=== PATIENT | female | born 1980 | race African-American/Black ===

== ENCOUNTER 2018-05-07 02:43 | Emergency (ER) | payer MEDICAID ==
--- NOTE | 2018-05-07 02:50 | EDPHY ---
H & P Stated Complaint: from out of town didn't bring her abilify Time Seen by Provider: 05/07/18 02:50 HPI/ROS: HPI CHIEF COMPLAINT: "I would like a refill of my Abilify" HISTORY OF PRESENT ILLNESS: This patient is a 37-year-old female, she presents emergency room stating that she needs a medication refill of her bili fine is been out of it for 3-4 days. She reports to me that she is homeless and relocated from [place] to [place]. She has not established primary care here in [place]. She denies wanting to hurt herself or anybody else, denies homicidal or SI. Denies visual auditory hallucination. She takes Abilify for her PTSD. Past Medical History: PTSD Past Surgical History: Toe surgery, tonsillectomy, adenoidectomy Social History: Smokes tobacco daily, occasional alcohol use, denies illicit drugs. Family History: Noncontributory ROS REVIEW OF SYSTEMS: 10 Systems were reviewed and negative with the exception of the elements mentioned in the history of present illness. Exam Constitutional triage nursing summary reviewed, vital signs reviewed, awake/ alert. Eyes normal conjunctivae and sclera, EOMI, PERRLA. HENT normal inspection, atraumatic, moist mucus membranes, no epistaxis, neck supple/ no meningismus, no raccoon eyes. Respiratory clear to auscultation bilaterally, normal breath sounds, no respiratory distress, no wheezing. Cardiovascular rate normal, regular rhythm, no murmur, no edema, distal pulses normal. Gastrointestinal soft, non-tender, no rebound, no guarding, normal bowel sounds, no distension, no pulsatile mass. Genitourinary no CVA tenderness. Musculoskeletal no midline vertebral tenderness, full range of motion, no calf swelling, no tenderness of extremities, no meningismus, good pulses, neurovascularly intact. Skin pink, warm, & dry, no rash, skin atraumatic. Neurologic awake, alert and oriented x 3, AAOx3, moves all 4 extremities equally, motor intact, sensory intact, CN II-XII intact, normal cerebellar, normal vision, normal speech. Psychiatric normal mood/affect. Heme/Lymph/Immune no lymphadenopathy. Differential Diagnosis: Includes but is not limited to in a particular order medication refill, need for mental health resources. Medical Decision Making: Here in emergency room this patient has no complaints , she states she needs her Abilify as she has been out of her for 3 days. She just relocated from [facility] to [facility]. Will give her resources for [facility] to follow [facility] with. Patient tells me that Abilify is a new medication for her. That she has been out of for 3 days but briefly took prior to arrival. I explained that I do not feel comfortable giving her a new prescription for Abilify, she needs close follow up with [facility]. They can prescribe that for her if need be she is comfortable this plan understands. She denies SI or HI denies visual or auditory hallucinations, denies feeling psychotic. Source: Patient - Personal History LMP (Females 10-55): 1-7 Days Ago Current Tetanus/Diphtheria Vaccine: Yes Current Tetanus Diphtheria and Acellular Pertussis (TDAP): Yes - Medical/Surgical History Hx Asthma: No Hx Chronic Respiratory Disease: No Hx Diabetes: No Hx Cardiac Disease: No Hx Renal Disease: No Hx Cirrhosis: No Hx Alcoholism: No Hx HIV/AIDS: No Hx Splenectomy or Spleen Trauma: No Other PMH: tonsillectomy and addnoidectomy, PTSD, HTN - Social History Smoking Status: Current some day smoker Constitutional: Initial Vital Signs Temperature (C) 36.4 C 05/07/18 02:44 Heart Rate 74 05/07/18 02:44 Respiratory Rate 16 05/07/18 02:44 Blood Pressure 136/93 H 05/07/18 02:44 O2 Sat (%) 96 05/07/18 02:44 O2 Delivery Mode Room Air Allergies/Adverse Reactions: Sulfa (Sulfonamide Antibiotics) Allergy (Verified 05/07/18 02:50) sulfamethoxazole [From Bactrim] Allergy (Verified 05/07/18 02:50) trimethoprim [From Bactrim] Allergy (Verified 05/07/18 02:50) Home Medications: Medication Instructions Recorded Abilify 05/07/18 Departure - Departure Disposition: Home, Routine, Self-Care Clinical Impression: Medication refill Condition: Good Instructions: Medicine Refill (ED) Additional Instructions: 1. Follow up with [facility]. 2. Return to the emergency room if you have worsening symptoms questions or concerns. Referrals: NONE *PRIMARY CARE P,. [Primary Care Provider] - As per Instructions [facility] [Clinic] - As per Instructions
[2018-05-07 04:03] VITALS: BP 119/89
== END 2018-05-07 04:03 | disposition home or self-care (01) ==
DX: Z76.0 Encounter for issue of repeat prescription (principal); Z59.0 Homelessness